=== PATIENT | male | born 1985 | race Caucasian/White ===

== ENCOUNTER 2019-08-17 04:51 | Inpatient (IN) | payer BC ==
[2019-08-17] MEDS ORDERED: Ketorolac 30 MG/ML SDV IVPUSH ONE (05:03)
[2019-08-17] MEDS: Lactated Ringers 1,000 ML IV SCH ×4 (05:17→18:04)
[2019-08-17 05:26] LABS: CHLORIDE,CL 105 mEq/L (98-106); SODIUM,NA 143 mEq/L (136-145)
[2019-08-17] MEDS ORDERED: fentaNYL 100 MCG/2 ML SDV IVPUSH ONE (05:26)
--- NOTE | 2019-08-17 05:32 | EDM.PDOC ---
ED HPI GENERAL MEDICAL PROBLEM - General Chief Complaint: Abdominal Pain Stated Complaint: abdominal pain Time Seen by Provider: 08/17/19 05:15 Source of Information: Reports: Patient History Limitations: Reports: No Limitations - History of Present Illness INITIAL COMMENTS - FREE TEXT/NARRATIVE: Patient presents to ER with complaints of lower quadrant abdominal pain. Has had low grade pain for about a week. Started to get worse yesterday but severe now at a 10/10. Has been mostly located in suprapubic area. No fevers. No nausea or vomiting. Has had normal BMs through the week. No blood in stool or urine. No recent lifting or trauma. Previous orchiectomy for an "abnormality" , was not cancerous. Also has had vasectomy. Onset: Gradual Duration: Day(s): Location: Reports: Abdomen Quality: Reports: Sharp Severity: Severe Improves with: Reports: None Associated Symptoms: Denies: Confusion, Chest Pain, Cough, Fever/Chills, Loss of Appetite, Nausea/Vomiting, Shortness of Breath Treatments VEH[employer]DER: Reports: NSAIDS Abdominal Pain Score (Numeric/FACES): 10 - Related Data Allergies Allergy/AdvReac Type Severity Reaction Status Date / Time erythromycin base Allergy Hives Verified 08/17/19 05:02 topiramate [From Topamax] Allergy Hives Verified 08/17/19 05:02 Home Meds: Home Meds Albuterol [Ventolin HFA] 1 inh ASDIRECTED PRN 08/17/19 [History] Fluticasone Propionate [Flovent HFA 220 MCG] 1 inh DAILY 08/17/19 [History] Montelukast Sodium 1 tab PO DAILY 08/17/19 [History] SUMAtriptan [Imitrex] 1 tab PO ASDIRECTED PRN 08/17/19 [History] Past Medical History Neurological History: Reports: Headaches, Chronic (cluster headaches) - Past Surgical History Male Surgical History: Reports: Vasectomy, Other (See Below) (orchiectomy) Social & Family History - Tobacco Use Smoking Status *Q: Never Smoker ED ROS GENERAL - Review of Systems Review Of Systems: See Below Constitutional: Denies: Fever, Chills, Malaise, Weakness, Decreased Appetite HEENT: Reports: No Symptoms Respiratory: Denies: Shortness of Breath, Cough Cardiovascular: Denies: Chest Pain, Edema, Lightheadedness Endocrine: Denies: Fatigue GI/Abdominal: Reports: Abdominal Pain. Denies: Nausea, Vomiting : Denies: Dysuria, Hematuria Musculoskeletal: Reports: No Symptoms ED EXAM, GI/ABD - Physical Exam Exam: See Below Exam Limited By: No Limitations General Appearance: Alert, WD/WN, Moderate Distress Ears: Normal External Exam, Normal TMs Nose: Normal Inspection, Normal Mucosa, No Blood Throat/Mouth: Normal Inspection, Normal Oropharynx Head: Normocephalic Neck: Normal Inspection, Supple, Non-Tender Respiratory/Chest: No Respiratory Distress, Lungs Clear, Normal Breath Sounds Cardiovascular: Regular Rate, Rhythm GI/Abdominal Exam: Normal Bowel Sounds, Guarding, Rigid, Tender (bilateral lower quadrants) Extremities: Normal Inspection, No Pedal Edema Neurological: Alert, Oriented Skin Exam: Diaphoretic Course - Vital Signs Last Recorded V/S: Last Vital Signs Temp 100.2 F 08/17/19 07:00 Pulse 97 08/17/19 06:00 Resp 16 08/17/19 06:00 BP 128/84 08/17/19 06:00 Pulse Ox 99 08/17/19 06:00 - Orders/Labs/Meds Orders: Active Orders 24 hr Category Date Time Status Patient Status Manage Transfer [TRANSFER] Routine ADT 08/17/19 08:35 Ordered Notify Provider Consults [RC] ASDIRECTED Care 08/17/19 06:24 Active Consult to Physician [CONS] Routine Cons 08/17/19 06:23 Active Abdomen Pelvis w Cont [CT] Stat Exams 08/17/19 05:40 Taken Lactated Ringers [Ringers, Lactated] 1,000 ml Med 08/17/19 05:15 Active IV ASDIRECTED Piperacillin/Tazobactam [Zosyn] 3.375 gm Med 08/17/19 06:30 Active Sodium Chloride 0.9% [Normal Saline] 50 ml IV Q6H fentaNYL [Sublimaze] Med 08/17/19 06:20 Active 25 mcg IVPUSH Q1H PRN Resuscitation Status Routine Resus Stat 08/17/19 08:38 Ordered Medication Orders Fentanyl (Sublimaze) 25 mcg IVPUSH Q1H PRN PRN Reason: Pain Lactated Ringer's (Ringers, Lactated) 1,000 mls @ 250 mls/hr IV ASDIRECTED DANNA Last Admin: 08/17/19 05:17 Dose: 250 mls/hr Piperacillin Sod/Tazobactam (Sod 3.375 gm/ Sodium Chloride) 50 mls @ 100 mls/ hr IV Q6H DAN[facility] Last Admin: 08/17/19 06:36 Dose: 100 mls/hr Labs: Laboratory Tests 08/17/19 08/17/19 08/17/19 Range/Units 05:05 05:05 05:09 WBC 18.4 H (5.0-10.0) 10^3/uL RBC 5.41 (4.50-6.00) 10^6/uL Hgb 15.2 (14.0-18.0) g/dL Hct 44.4 (40.0-54.0) % MCV 82.1 (82.0-94.0) fL MCH 28.1 (27.0-32.0) pg MCHC 34.2 (33.0-38.0) g/dL RDW Coeff of Angela 12.8 (11.0-15.0) % Plt Count 259 (150-400) 10^3/uL Neut % (Auto) 75.7 (35-85) % Lymph % (Auto) 11.8 (10-55) % [place] % (Auto) 9.8 (0-16) % Eos % (Auto) 2.6 (0-5) % Baso % (Auto) 0.1 (0-3) % Neut # (Auto) 13.91 H (1.80-7.00) 10^3/uL Lymph # (Auto) 2.16 (1.00-4.80) 10^3/uL [place] # (Auto) 1.80 H (0.00-0.80) 10^3/uL Eos # (Auto) 0.48 H (0.00-0.45) 10^3/uL Baso # (Auto) 0.01 10^3/uL Sodium 143 (136-145) mEq/L Potassium 4.1 (3.5-5.0) mEq/L Chloride 105 (98-106) mEq/L Carbon Dioxide 25 (21-32) mmol/L BUN 11 (7-18) mg/dL Creatinine 1.0 (0.7-1.3) mg/dL Est Cr Clr Drug Dosing TNP Estimated GFR (MDRD) > 60 (>=60) mL/min Glucose 144 H D (75-99) mg/dL Calcium 8.9 (8.4-10.1) mg/dL Total Bilirubin 0.7 (0.0-1.0) mg/dL AST 17 (15-37) U/L ALT 24 (12-78) U/L Alkaline Phosphatase 67 (46-116) U/L C-Reactive Protein 7.0 H (0.2-0.8) mg/dL Total Protein 7.1 (6.4-8.2) g/dL Albumin 3.8 (3.4-5.0) g/dL Urine Color Yellow (YELLOW) Urine Appearance Clear (CLEAR) Urine pH 7.0 (4.5-8.0) Ur Specific [place]da 1.020 (1.003-1.020) Urine Protein Negative (NEGATIVE) mg/dL Urine Glucose (UA) Negative (NEGATIVE) mg/dL Urine Ketones Negative (NEGATIVE) mg/dL Urine Occult Blood Negative (NEGATIVE) Urine Nitrite Negative (NEGATIVE) Urine Bilirubin Negative (NEGATIVE) Urine Urobilinogen 0.2 (0.2-1.0) EU/dL Ur Leukocyte Esterase Negative (NEGATIVE) Urine RBC Not seen (0-5) /HPF Urine WBC Not seen (0-5) /HPF Urine Mucus Moderate H (NOT SEEN) /HPF Meds: Medications Generic Name Dose Route Start Last Admin Trade Name Freq PRN Reason Stop Dose Admin Fentanyl 25 mcg 08/17/19 06:20 Sublimaze IVPUSH Q1H PRN Pain Lactated Ringer's 1,000 mls @ 250 mls/hr 08/17/19 05:15 08/17/19 05:17 Ringers, Lactated IV 250 mls/hr ASDIRECTED DANNA Administration Piperacillin Sod/Tazobactam 50 mls @ 100 mls/hr 08/17/19 06:30 08/17/19 06:36 Sod 3.375 gm/ Sodium Chloride IV 100 mls/hr Q6H DANNA Administration Discontinued Medications Generic Name Dose Route Start Last Admin Trade Name Freq PRN Reason Stop Dose Admin Fentanyl 50 mcg 08/17/19 05:26 08/17/19 05:31 Sublimaze IVPUSH 08/17/19 05:27 50 mcg ONETIME ONE Administration Iopamidol 100 ml 08/17/19 05:34 08/17/19 05:51 Isovue-370 (76%) IVPUSH 08/17/19 05:35 100 ml ONETIME ONE Administration Ketorolac Tromethamine 30 mg 08/17/19 05:03 08/17/19 05:11 Toradol IVPUSH 08/17/19 05:04 30 mg ONETIME ONE Administration - Re-Assessments/Exams Free Text/Narrative Re-Assessment/Exam: 08/17/19 0540 Labs note high WBC, CRP of 7. UA is clear. Will obtain CT scan with IV contrast. 08/17/19 06:19 Report received, has perforated appendix. Discussed with patient and , called Dr. Abarca, general surgeon in house today. Will plan to proceed with surgery here today. 08/17/19 08:15 Will admit to observation. Departure - Departure Time of Disposition: 08:16 Disposition: Refer to Observation Clinical Impression: Perforated appendix - Discharge Information *PRESCRIPTION DRUG MONITORING PROGRAM REVIEWED*: No *COPY OF PRESCRIPTION DRUG MONITORING REPORT IN PATIENT JAMAL: No Referrals: PCP,None [Primary Care Provider] - Forms: ED Department Discharge - Problem List & Annotations (1) Perforated appendix SNOMED Code(s): 96429354 Code(s): K35.32 - ACUTE APPENDICITIS WITH PERF AND LOC PERITONITIS, W/O ABSCS Status: Acute Priority: High Current Visit: Yes - Problem List Review Problem List Initiated/Reviewed/Updated: Yes - My Orders Last 24 Hours: My Active Orders 08/17/19 05:15 Lactated Ringers [Ringers, Lactated] 1,000 ml IV ASDIRECTED 08/17/19 05:40 Abdomen Pelvis w Cont [CT] Stat 08/17/19 06:20 fentaNYL [Sublimaze] 25 mcg IVPUSH Q1H PRN 08/17/19 06:23 Consult to Physician [CONS] Routine 08/17/19 06:24 Notify Provider Consults [RC] ASDIRECTED 08/17/19 06:30 Piperacillin/Tazobactam [Zosyn] 3.375 gm Sodium Chloride 0.9% [Normal Saline] 50 ml IV Q6H 08/17/19 08:35 Patient Status Manage Transfer [TRANSFER] Routine 08/17/19 08:38 Resuscitation Status Routine - Assessment/Plan Admission H&P: Please use this note as an admission H&P Last 24 Hours: My Active Orders 08/17/19 05:15 Lactated Ringers [Ringers, Lactated] 1,000 ml IV ASDIRECTED 08/17/19 05:40 Abdomen Pelvis w Cont [CT] Stat 08/17/19 06:20 fentaNYL [Sublimaze] 25 mcg IVPUSH Q1H PRN 08/17/19 06:23 Consult to Physician [CONS] Routine 08/17/19 06:24 Notify Provider Consults [RC] ASDIRECTED 08/17/19 06:30 Piperacillin/Tazobactam [Zosyn] 3.375 gm Sodium Chloride 0.9% [Normal Saline] 50 ml IV Q6H 08/17/19 08:35 Patient Status Manage Transfer [TRANSFER] Routine 08/17/19 08:38 Resuscitation Status Routine Assessment:: Perforated Appendix Plan: ADmit to observation. Continue IV Zosyn. Plan for surgical intervention with Dr. Abarca this am.
[2019-08-17] MEDS ORDERED: Iopamidol 755 Mg/ML 100 ML Bottle IVPUSH ONE (05:34)
[2019-08-17] MEDS ORDERED: Piperacillin/Tazobactam 3.375 GM in Sodium Chloride 0.9% 50 ML IV SCH ×2 (06:30→12:45)
[2019-08-17] MEDS ORDERED: Propofol 200 MG/20 ML SDV IV ONE (08:39)
[2019-08-17] MEDS ORDERED: fentaNYL 100 MCG/2 ML SDV ONE (08:39)
[2019-08-17] MEDS: fentaNYL 100 MCG/2 ML SDV IVPUSH PRN ×4 (08:47→20:09)
[2019-08-17] MEDS ORDERED: Sodium Chloride 0.9% 10 ML Syringe FLUSH PRN (12:43)
--- NOTE | 2019-08-17 13:23 | OR ---
DATE OF OPERATION: 08/17/2019 PREOPERATIVE DIAGNOSIS: ACUTE APPENDICITIS. POSTOPERATIVE DIAGNOSIS: ACUTE APPENDICITIS, RUPTURED. SURGEON: Armando Abarca MD PROCEDURE: LAPAROSCOPIC APPENDECTOMY. ANESTHESIA: General. ESTIMATED BLOOD LOSS: Minimum. SPECIMEN: Appendix. INDICATIONS: This 34-year-old male presented to the emergency room with a 4- to 5-day history of right lower quadrant abdominal pain. CT scan consistent with appendicitis, and he has an elevated white blood cell count of 18,000. FINDINGS: A perforated appendix with localized peritonitis. DESCRIPTION OF PROCEDURE: After adequate preparation, a Veress needle was placed and the abdomen insufflated. A 5 mm trocar was then inserted at this site. Examination of the abdomen did show some turbid fluid and fibrinous exudate around the appendix. Two other midline trocars were placed under direct vision. The appendix was matted in place by the surrounding epiploic appendages. These were dissected free down to the base of the appendix, and he had an obvious perforation, about a half a centimeter into the appendix from the cecal junction. The epiploic appendages needed to be cauterized away to be able to get a free space to close the base. A blue 45 mm stapler was used to transect the base of the appendix and then the rest of the mesoappendix was transected using a white load staple and cautery. The appendix was then put into a sterile retrieval bag and brought out through the suprapubic trocar site. The right lower quadrant was irrigated with any remaining blood. There was really not any gross spillage of stool contents, although some through the perforation. The abdomen was desufflated, trocars removed, and the skin closed with 4-0 Vicryl. BPImmanuel/BERTA /[id number]
--- NOTE | 2019-08-17 13:46 | HP ---
HISTORY OF PRESENT ILLNESS: This 34-year-old male presents to the emergency room with a 4- to 5-day history of abdominal pain, now maximally located in the right lower quadrant. He has not reported any fever, however, is 100.1 in the vital signs this morning. CT scan is consistent with acute appendicitis, which also fits his history and physical. PAST MEDICAL HISTORY: ALLERGIES: THE PATIENT HAS ALLERGIES TO ERYTHROMYCIN AND TOPAMAX. MEDICATIONS: Current medications are albuterol inhalers as needed and Flovent as needed. PRIOR SURGICAL HISTORY: Includes wisdom tooth extraction and orchiectomy. FAMILY HISTORY/SOCIAL HISTORY: The patient lives here locally in [place]. 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 He is . REVIEW OF SYSTEMS: Positive for occasional asthma. Otherwise, all other systems are negative. PHYSICAL EXAMINATION: HEENT: Normal. CHEST: The lungs are clear bilaterally. The heart is normal sinus rhythm. ABDOMEN: Maximally tender over the left lower quadrant. He does not have any evidence of hernias. No rebound and moderate guarding. EXTREMITIES: Have good range of motion. NEUROLOGIC: Intact. ASSESSMENT: ACUTE APPENDICITIS. PLAN: This patient will be admitted through extended same-day surgery preop with IV fluids and antibiotic. We will plan on laparoscopic appendectomy. Risks, benefits, and expected outcomes of this plan were discussed with the patient. TUCKER /[id number]
[2019-08-17] MEDS: Piperacillin/Tazobactam 3.375 GM in Sodium Chloride 0.9% 50 ML IV SCH ×2 (14:08→19:03)
[2019-08-17] MEDS: Acetaminophen/oxyCODONE 325-5 MG Tab PO PRN (20:10)
[2019-08-18] MEDS: Acetaminophen/oxyCODONE 325-5 MG Tab PO PRN ×2 (00:17→06:48)
[2019-08-18] MEDS: fentaNYL 100 MCG/2 ML SDV IVPUSH PRN ×4 (00:18→15:50)
[2019-08-18] MEDS: Piperacillin/Tazobactam 3.375 GM in Sodium Chloride 0.9% 50 ML IV SCH ×4 (00:19→20:10)
[2019-08-18] MEDS: Lactated Ringers 1,000 ML IV SCH ×2 (05:41→17:18)
--- NOTE | 2019-08-18 08:02 | PCM.SN ---
- Free Text/Narrative Note: Stable POD#1. Tolerated PO liquids OK. Wounds clean. States he feels a little better. Positive flatus. Will keep for next 2-3 days on Zosyn. Discharge instructions when able to go home. Transfer primary care to [facility]. After discharge, FU with PCP as needed.
[2019-08-18] MEDS: Ondansetron 4 MG/2 ML SDV IVPUSH PRN ×2 (08:15→12:32)
[2019-08-18 08:21] LABS: CHLORIDE,CL 106 mEq/L (98-106); SODIUM,NA 143 mEq/L (136-145)
--- NOTE | 2019-08-18 13:44 | PCM.PN ---
- General Info Date of Service: 08/18/19 Functional Status: Reports: Pain Controlled, Tolerating Diet (PO fluids well) - Review of Systems General: Reports: No Symptoms. Denies: Fever HEENT: Reports: No Symptoms Pulmonary: Reports: No Symptoms Cardiovascular: Reports: No Symptoms Gastrointestinal: Reports: Abdominal Pain (bloated) Genitourinary: Reports: No Symptoms Musculoskeletal: Reports: No Symptoms Skin: Reports: No Symptoms Neurological: Reports: No Symptoms Psychiatric: Reports: No Symptoms - Patient Data Vitals - Most Recent: Last Vital Signs Temp 97.7 F 08/18/19 12:00 Pulse 90 08/18/19 12:00 Resp 18 08/18/19 12:00 BP 142/83 H 08/18/19 12:00 Pulse Ox 98 08/18/19 12:00 Weight - Most Recent: 200 lb I&O - Last 24 Hours: Intake & Output 08/17/19 08/18/19 08/18/19 22:59 06:59 14:59 Intake Total 838 1000 Balance 838 1000 Lab Results Last 24 Hours: Laboratory Results - last 24 hr 08/18/19 08/18/19 Range/Units 05:11 05:11 WBC 26.0 H* (5.0-10.0) 10^3/uL RBC 4.89 (4.50-6.00) 10^6/uL Hgb 14.0 (14.0-18.0) g/dL Hct 40.7 (40.0-54.0) % MCV 83.2 (82.0-94.0) fL MCH 28.6 (27.0-32.0) pg MCHC 34.4 (33.0-38.0) g/dL RDW Coeff of Angela 13.3 (11.0-15.0) % Plt Count 225 (150-400) 10^3/uL Add Manual Diff Yes Neutrophils % (Manual) 86 H (35-85) % Band Neutrophils % 1 (0-5) % Lymphocytes % (Manual) 3 L (21-55) % Monocytes % (Manual) 11 (2-12) % Sodium 143 (136-145) mEq/L Potassium 4.1 (3.5-5.0) mEq/L Chloride 106 (98-106) mEq/L Carbon Dioxide 27 (21-32) mmol/L BUN 12 (7-18) mg/dL Creatinine 1.0 (0.7-1.3) mg/dL Est Cr Clr Drug Dosing 117.63 mL/min Estimated GFR (MDRD) > 60 (>=60) mL/min Glucose 123 H (75-99) mg/dL Calcium 9.0 (8.4-10.1) mg/dL C-Reactive Protein 27.5 H (0.2-0.8) mg/dL Med Orders - Current: Current Medications Fentanyl (Sublimaze) 25 mcg IVPUSH Q1H PRN PRN Reason: Pain Last Admin: 08/18/19 12:32 Dose: 25 mcg Piperacillin Sod/Tazobactam (Sod 3.375 gm/ Sodium Chloride) 50 mls @ 100 mls/ hr IV Q6H [facility] Last Admin: 08/18/19 12:32 Dose: 100 mls/hr Lactated Ringer's (Ringers, Lactated) 1,000 mls @ 100 mls/hr IV ASDIRECTED [facility] Last Admin: 08/18/19 05:41 Dose: 100 mls/hr Morphine Sulfate (Morphine) 2 mg IV Q1H PRN PRN Reason: Pain (severe 7-10) Ondansetron HCl (Zofran) 4 mg IVPUSH Q6H PRN PRN Reason: Nausea/Vomiting Last Admin: 08/18/19 12:32 Dose: 4 mg Oxycodone/Acetaminophen (Percocet 325-5 Mg) 1 tab PO Q4H PRN PRN Reason: Pain (moderate 4-6) Last Admin: 08/18/19 06:48 Dose: 1 tab Sodium Chloride (Saline Flush) 10 ml FLUSH ASDIRECTED PRN PRN Reason: Keep Vein Open Discontinued Medications Fentanyl (Sublimaze) 50 mcg IVPUSH ONETIME ONE Stop: 08/17/19 05:27 Last Admin: 08/17/19 05:31 Dose: 50 mcg Fentanyl (Sublimaze) 300 mcg .XX .STK-MED ONE Stop: 08/17/19 08:40 Lactated Ringer's (Ringers, Lactated) 1,000 mls @ 250 mls/hr IV ASDIRECTED DANNA Last Infusion: 08/17/19 17:29 Dose: 100 mls/hr Piperacillin Sod/Tazobactam (Sod 3.375 gm/ Sodium Chloride) 50 mls @ 100 mls/ hr IV Q6H [facility] Last Admin: 08/17/19 06:36 Dose: 100 mls/hr Piperacillin Sod/Tazobactam (Sod 3.375 gm/ Sodium Chloride) 50 mls @ 100 mls/ hr IV Q6H [facility] Last Admin: 08/17/19 13:28 Dose: Not Given Iopamidol (Isovue-370 (76%)) 100 ml IVPUSH ONETIME ONE Stop: 08/17/19 05:35 Last Admin: 08/17/19 05:51 Dose: 100 ml Ketorolac Tromethamine (Toradol) 30 mg IVPUSH ONETIME ONE Stop: 08/17/19 05:04 Last Admin: 08/17/19 05:11 Dose: 30 mg Propofol (Diprivan 20 Ml) 200 mg IV .STK-MED ONE Stop: 08/17/19 08:40 - Exam General: Alert, Oriented, Cooperative, No Acute Distress Lungs: Clear to Auscultation, Normal Respiratory Effort Cardiovascular: Regular Rate, Regular Rhythm GI/Abdominal Exam: Normal Bowel Sounds, Distended, Tender (mildly diffuse), Other (dressings intact. No surrounding drainage, redness, heat. No obvious infection externally suspected at sites. ) Back Exam: Normal Inspection Extremities: Normal Inspection, Normal Range of Motion, Non-Tender, No Pedal Edema, Normal Capillary Refill Skin: Warm, Dry Wound/Incisions: Healing Well, Dressing Dry and Intact, No Drainage. No: Erythema Psy/Mental Status: Alert, Normal Affect, Normal Mood - Problem List Review Problem List Initiated/Reviewed/Updated: Yes - My Orders Last 24 Hours: My Active Orders 08/19/19 05:00 BASIC METABOLIC PANEL,BMP [CHEM] DAILY CBC WITH AUTO DIFF [HEME] DAILY CRP [C-REACTIVE PROTEIN] [CHEM] DAILY 08/20/19 05:00 BASIC METABOLIC PANEL,BMP [CHEM] DAILY CBC WITH AUTO DIFF [HEME] DAILY CRP [C-REACTIVE PROTEIN] [CHEM] DAILY - Plan Plan:: 08/18/19 0800 This patient had appendix removal after perforation yesterday morning. Dr. Abarca did surgery here in [place]. Dr. Abarca saw this patient this morning and reported patient pain improved. Patient reports some bloating fullness. Patient does report nausea, but no vomiting. Denies fever. Reports he feels better today. He reports able to shower. PO fluids tolerated, but not able to eat foods yet due to nausea. No labs at this time reported. 08/18/19 1700 Patient reports some bloating fullness. Patient does report nausea, vomiting, abd pain at the umbilical. He does report the pain has increased since earlier today when seen by surgeon and me. Patient reports feeling better than yesterday though. Patient did get up and shower today. Patient reports that has been vomiting his fluids. Patient reports he is passing flatus. Dr. Abarca plans to keep until Tuesday, let PCP evaluate at that time for possible discharge. Will continue IV Zosyn. However, reviewed labs which show wbc yesterday 18.4, CRP 7.0. Today labs are wbc 26.0, CRP 27.5. Labs drawn resulted appears to be 0815am. I will repeat labs in afternoon due to wbc elevation, fever, vomiting. I spoke to the patient about his lab elevation, fever, and vomiting. Discussed about talking about patient case with a general surgeon, patient request consult at [facility] in [place]. I also then called and spoke to general surgeon at 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 Dr. Johnson general surgeon at [facility] suggest repeating the labs well. If wbc continues elevation, do a CT. If wbc has decreased, then xray. If illeus then may need NG, if abscess then may need a drain. Awaiting lab results. 08/18/19 1800 Labs wbc is still 26. His CRP has increased. Explained this to patient and . I recommend CT scan with IV contrast. The patient at bedside does not want patient to have ct scan. Discussed with the patient about I feel he needs a CT of abd/pelvis. I explained risk vs benefits with the patient and what we would be looking for. The reports that they would feel more comfortable if I tried to get a hold of the surgeon Dr. Abarca. I did then call his cell and get a hold of him. He reports that at this time continue IV abx and the admit. I then explained this to the patient and . At this time and patient do not want imaging done. I explained risks with not having the scan done. They still do not want at this time. 08/18/191914 I again returned back to the patient room to discuss him getting a ct scan of his abd/pelvis. The patient has again vomited. He continues to have fever, elevated CRP, elevated wbc. I feel strongly that this patient needs a ct scan of his abd/pelvis. I explained in detail risk vs benefits including sepsis, , ischemic bowel, bowel obstructions. Again explained clinical findings and labs with patient. I spent extended time at bedside explaining. The patient then agreed to have the ct scan done. CT scan being performed. 08/18/[id number] Radiologist called with CT results: Patient has an illeus. I then called and spoke with Dr. Abarca again about the patient. He has now reviewed the patient ct as well. He request an NG be placed in the patient to intermittent low suction for a couple of days to possible come out Tuesday. He reports to [facility] only. Continue IV Zosyn. Continue IV Morphine as needed. [id number]/18/[id number] RN had difficulty with NG insertion left nare. I then inserted NG into left nare without complications. 700ml Gastric green/dark brown secretions removed, then placed to low intermittent suction. RN secured tube. Patient tolerated procedure. Will continue admit and monitor here in [place]. I will see this patient again tomorrow and repeat labs tomorrow.
[2019-08-18 18:21] LABS: CHLORIDE,CL 105 mEq/L (98-106); SODIUM,NA 143 mEq/L (136-145)
[2019-08-18] MEDS ORDERED: Iopamidol 755 Mg/ML 100 ML Bottle IVPUSH ONE (19:55)
[2019-08-18] MEDS ORDERED: Morphine 2 MG/ML Syringe IVPUSH PRN (21:24)
[2019-08-18] MEDS ORDERED: Sodium Chloride 0.9% 1,000 ML IV SCH (21:30)
[2019-08-19] MEDS: Piperacillin/Tazobactam 3.375 GM in Sodium Chloride 0.9% 50 ML IV SCH ×4 (00:57→18:32)
[2019-08-19] MEDS: fentaNYL 100 MCG/2 ML SDV IVPUSH PRN ×4 (02:11→19:39)
[2019-08-19] MEDS: Lactated Ringers 1,000 ML IV SCH (04:54)
[2019-08-19 08:19] LABS: CHLORIDE,CL 105 mEq/L (98-106); SODIUM,NA 142 mEq/L (136-145)
--- NOTE | 2019-08-19 10:44 | PCM.PN ---
- General Info Date of Service: 08/19/19 Functional Status: Reports: Pain Controlled (improved today), Tolerating Diet ( ice chips only), Ambulating, Urinating Pain Score: 2 - Review of Systems General: Reports: Fever (99.7) HEENT: Reports: No Symptoms Pulmonary: Reports: No Symptoms Cardiovascular: Reports: No Symptoms Gastrointestinal: Reports: Abdominal Pain (but improved since NG place placement ), Flatus, Nausea, Vomiting (x1 about 6am this morning) Genitourinary: Reports: No Symptoms Musculoskeletal: Reports: No Symptoms Skin: Reports: No Symptoms Neurological: Reports: No Symptoms Psychiatric: Reports: No Symptoms - Patient Data Vitals - Most Recent: Last Vital Signs Temp 99.7 F 08/19/19 04:00 Pulse 99 08/19/19 08:00 Resp 18 08/19/19 08:00 BP 157/83 H 08/19/19 08:00 Pulse Ox 98 08/19/19 08:00 Weight - Most Recent: 200 lb I&O - Last 24 Hours: Intake & Output 08/18/19 08/19/19 08/19/19 22:59 06:59 14:59 Intake Total 1000 870 Output Total 850 Balance 1000 20 Lab Results Last 24 Hours: Laboratory Results - last 24 hr 08/18/19 08/18/19 08/18/19 Range/Units 17:14 17:25 17:25 WBC 26.0 H* (5.0-10.0) 10^3/uL RBC 5.14 (4.50-6.00) 10^6/uL Hgb 14.6 (14.0-18.0) g/dL Hct 43.2 (40.0-54.0) % MCV 84.0 (82.0-94.0) fL MCH 28.4 (27.0-32.0) pg MCHC 33.8 (33.0-38.0) g/dL RDW Coeff of Angela 13.6 (11.0-15.0) % Plt Count 247 (150-400) 10^3/uL Neut % (Auto) 91.9 H (35-85) % Lymph % (Auto) 2.5 L (10-55) % [place] % (Auto) 5.5 (0-16) % Eos % (Auto) 0 (0-5) % Baso % (Auto) 0.1 (0-3) % Neut # (Auto) 23.84 H (1.80-7.00) 10^3/uL Lymph # (Auto) 0.66 L (1.00-4.80) 10^3/uL [place] # (Auto) 1.42 H (0.00-0.80) 10^3/uL Eos # (Auto) 0.01 (0.00-0.45) 10^3/uL Baso # (Auto) 0.02 10^3/uL Sodium 143 (136-145) mEq/L Potassium 3.9 (3.5-5.0) mEq/L Chloride 105 (98-106) mEq/L Carbon Dioxide 27 (21-32) mmol/L BUN 15 (7-18) mg/dL Creatinine 1.0 (0.7-1.3) mg/dL Est Cr Clr Drug Dosing 117.63 mL/min Estimated GFR (MDRD) > 60 (>=60) mL/min Glucose 121 H (75-99) mg/dL Lactic Acid 1.4 (0.4-2.0) mmol/L Calcium 8.9 (8.4-10.1) mg/dL Total Bilirubin 0.6 (0.0-1.0) mg/dL AST 10 L (15-37) U/L ALT 15 (12-78) U/L Alkaline Phosphatase 54 (46-116) U/L C-Reactive Protein 32.7 H (0.2-0.8) mg/dL Total Protein 6.8 (6.4-8.2) g/dL Albumin 3.0 L (3.4-5.0) g/dL 08/19/19 08/19/19 Range/Units 05:00 05:00 WBC 22.0 H* (5.0-10.0) 10^3/uL RBC 4.83 (4.50-6.00) 10^6/uL Hgb 13.6 L (14.0-18.0) g/dL Hct 40.3 (40.0-54.0) % MCV 83.4 (82.0-94.0) fL MCH 28.2 (27.0-32.0) pg MCHC 33.7 (33.0-38.0) g/dL RDW Coeff of Angela 13.4 (11.0-15.0) % Plt Count 260 (150-400) 10^3/uL Neut % (Auto) 90.0 H (35-85) % Lymph % (Auto) 3.6 L (10-55) % [place] % (Auto) 6.3 (0-16) % Eos % (Auto) 0.1 (0-5) % Baso % (Auto) 0 (0-3) % Neut # (Auto) 19.76 H (1.80-7.00) 10^3/uL Lymph # (Auto) 0.80 L (1.00-4.80) 10^3/uL [place] # (Auto) 1.38 H (0.00-0.80) 10^3/uL Eos # (Auto) 0.02 (0.00-0.45) 10^3/uL Baso # (Auto) 0.01 10^3/uL Sodium 142 (136-145) mEq/L Potassium 3.8 (3.5-5.0) mEq/L Chloride 105 (98-106) mEq/L Carbon Dioxide 27 (21-32) mmol/L BUN 18 (7-18) mg/dL Creatinine 1.0 (0.7-1.3) mg/dL Est Cr Clr Drug Dosing 117.63 mL/min Estimated GFR (MDRD) > 60 (>=60) mL/min Glucose 136 H (75-99) mg/dL Lactic Acid (0.4-2.0) mmol/L Calcium 8.7 (8.4-10.1) mg/dL Total Bilirubin (0.0-1.0) mg/dL AST (15-37) U/L ALT (12-78) U/L Alkaline Phosphatase (46-116) U/L C-Reactive Protein 41.7 H (0.2-0.8) mg/dL Total Protein (6.4-8.2) g/dL Albumin (3.4-5.0) g/dL Med Orders - Current: Current Medications Fentanyl (Sublimaze) 25 mcg IVPUSH Q1H PRN PRN Reason: Pain Last Admin: 08/19/19 04:54 Dose: 25 mcg Piperacillin Sod/Tazobactam (Sod 3.375 gm/ Sodium Chloride) 50 mls @ 100 mls/ hr IV Q6H [facility] Last Admin: 08/19/19 06:15 Dose: 100 mls/hr Lactated Ringer's (Ringers, Lactated) 1,000 mls @ 100 mls/hr IV ASDIRECTED [facility] Last Admin: 08/19/19 04:54 Dose: 75 mls/hr Morphine Sulfate (Morphine) 2 mg IV Q1H PRN PRN Reason: Pain (severe 7-10) Last Admin: 08/18/19 22:40 Dose: 2 mg Ondansetron HCl (Zofran) 4 mg IVPUSH Q6H PRN PRN Reason: Nausea/Vomiting Last Admin: 08/18/19 12:32 Dose: 4 mg Oxycodone/Acetaminophen (Percocet 325-5 Mg) 1 tab PO Q4H PRN PRN Reason: Pain (moderate 4-6) Last Admin: 08/18/19 06:48 Dose: 1 tab Sodium Chloride (Saline Flush) 10 ml FLUSH ASDIRECTED PRN PRN Reason: Keep Vein Open Discontinued Medications Fentanyl (Sublimaze) 50 mcg IVPUSH ONETIME ONE Stop: 08/17/19 05:27 Last Admin: 08/17/19 05:31 Dose: 50 mcg Fentanyl (Sublimaze) 300 mcg .XX .STK-MED ONE Stop: 08/17/19 08:40 Lactated Ringer's (Ringers, Lactated) 1,000 mls @ 250 mls/hr IV ASDIRECTED [facility] Last Infusion: 08/17/19 17:29 Dose: 100 mls/hr Piperacillin Sod/Tazobactam (Sod 3.375 gm/ Sodium Chloride) 50 mls @ 100 mls/ hr IV Q6H [facility] Last Admin: 08/17/19 06:36 Dose: 100 mls/hr Piperacillin Sod/Tazobactam (Sod 3.375 gm/ Sodium Chloride) 50 mls @ 100 mls/ hr IV Q6H [facility] Last Admin: 08/17/19 13:28 Dose: Not Given Sodium Chloride (Normal Saline) 1,000 mls @ 75 mls/hr IV ASDIRECTED [facility] Iopamidol (Isovue-370 (76%)) 100 ml IVPUSH ONETIME ONE Stop: 08/17/19 05:35 Last Admin: 08/17/19 05:51 Dose: 100 ml Iopamidol (Isovue-370 (76%)) 100 ml IVPUSH ONETIME ONE Stop: 08/18/19 19:56 Last Admin: 08/18/19 20:03 Dose: 100 ml Ketorolac Tromethamine (Toradol) 30 mg IVPUSH ONETIME ONE Stop: 08/17/19 05:04 Last Admin: 08/17/19 05:11 Dose: 30 mg Propofol (Diprivan 20 Ml) 200 mg IV .STK-MED ONE Stop: 08/17/19 08:40 - Exam General: Alert, Oriented, Cooperative, No Acute Distress Lungs: Clear to Auscultation, Normal Respiratory Effort Cardiovascular: Regular Rate, Regular Rhythm. No: No Murmurs GI/Abdominal Exam: Soft, Tender (very mild umbilical). No: Guarding, Rigid, Rebound (Male) Exam: Deferred Back Exam: Normal Inspection Extremities: Normal Inspection, No Pedal Edema, Normal Capillary Refill Skin: Warm, Dry Wound/Incisions: Healing Well, Dressing Dry and Intact, No Drainage. No: Drainage, Erythema Psy/Mental Status: Alert, Normal Affect, Normal Mood - Problem List Review Problem List Initiated/Reviewed/Updated: Yes - My Orders Last 24 Hours: My Active Orders 08/18/19 17:14 Blood Culture x2 Reflex Set [OM.PC] Stat 08/18/19 18:00 CULTURE BLOOD [BC] Stat CULTURE BLOOD [BC] Stat 08/18/19 18:20 Abdomen Pelvis w Cont [CT] Stat 08/18/19 21:23 NG [Gastrointestinal Tube Mgmt] [RC] 0800,2000 NG [Nasogastric Orogastric Tube Insertion] [OM.PC] Routine 08/19/19 Breakfast Nothing Per Oral Diet [DIET] 08/20/19 05:00 BASIC METABOLIC PANEL,BMP [CHEM] DAILY CBC WITH AUTO DIFF [HEME] DAILY CRP [C-REACTIVE PROTEIN] [CHEM] DAILY - Plan Plan:: 08/18/19 0800 This patient had appendix removal after perforation yesterday morning. Dr. Abarca did surgery here in [place]. Dr. Abarca saw this patient this morning and reported patient pain improved. Patient reports some bloating fullness. Patient does report nausea, but no vomiting. Denies fever. Reports he feels better today. He reports able to shower. PO fluids tolerated, but not able to eat foods yet due to nausea. No labs at this time reported. 08/18/19 1700 Patient reports some bloating fullness. Patient does report nausea, vomiting, abd pain at the umbilical. He does report the pain has increased since earlier today when seen by surgeon and me. Patient reports feeling better than yesterday though. Patient did get up and shower today. Patient reports that has been vomiting his fluids. Patient reports he is passing flatus. Dr. Abarca plans to keep until Tuesday, let PCP evaluate at that time for possible discharge. Will continue IV Zosyn. However, reviewed labs which show wbc yesterday 18.4, CRP 7.0. Today labs are wbc 26.0, CRP 27.5. Labs drawn resulted appears to be 0815am. I will repeat labs in afternoon due to wbc elevation, fever, vomiting. I spoke to the patient about his lab elevation, fever, and vomiting. Discussed about talking about patient case with a general surgeon, patient request consult at [facility] in [place]. 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 Dr. Johnson general surgeon at [facility] suggest repeating the labs well. If wbc continues elevation, do a CT. If wbc has decreased, then xray. If illeus then may need NG, if abscess then may need a drain. Awaiting lab results. 08/18/19 1800 Labs wbc is still 26. His CRP has increased. Explained this to patient and . I recommend CT scan with IV contrast. The patient at bedside does not want patient to have ct scan. Discussed with the patient about I feel he needs a CT of abd/pelvis. I explained risk vs benefits with the patient and what we would be looking for. The reports that they would feel more comfortable if I tried to get a hold of the surgeon Dr. Abarca. I did then call his cell and get a hold of him. He reports that at this time continue IV abx and the admit. I then explained this to the patient and . At this time and patient do not want imaging done. I explained risks with not having the scan done. They still do not want at this time. 08/18/191914 I again returned back to the patient room to discuss him getting a ct scan of his abd/pelvis. The patient has again vomited. He continues to have fever, elevated CRP, elevated wbc. I feel strongly that this patient needs a ct scan of his abd/pelvis. I explained in detail risk vs benefits including sepsis, , ischemic bowel, bowel obstructions. Again explained clinical findings and labs with patient. I spent extended time at bedside explaining. The patient then agreed to have the ct scan done. CT scan being performed. 08/18/192044 Radiologist called with CT results: Patient has an illeus. I then called and spoke with Dr. Abarca again about the patient. He has now reviewed the patient ct as well. He request an NG be placed in the patient to intermittent low suction for a couple of days to possible come out Tuesday. He reports to ice chips only. Continue IV Zosyn. Continue IV Morphine as needed. 08/18/192144 RN had difficulty with NG insertion left nare. I then inserted NG into left nare without complications. 700ml Gastric green/dark brown secretions removed, then placed to low intermittent suction. RN secured tube. Patient tolerated procedure. Will continue admit and monitor here in [place]. I will see this patient again tomorrow and repeat labs tomorrow. 08/19/19 1030 This patient has NG in place to suction intermittent. RN told me early this morning the patient was ambulating and had x1 vomit. The NG tube was adjusted and patient has not had vomiting since. The patient reports that since NG insertion and especially this morning, he has felt much better. He reports he has felt the best since Tuesday. Patient denies fever subjective. He reports bloating and abd pain has decreased. He denies nausea now. Labs today are wbc 22 , CRP 41.7. His temp is 99.7. Will continue NG, Ice chips. PCP to evaluate tomorrow. Will continue abx.
--- NOTE | 2019-08-19 11:47 | PCM.SN ---
- Free Text/Narrative Note: Dr. Abarca called to check on patient. Will keep NG in today. Patient has not had a BM yet, but passing gas. Surgeon will followup with PCP tomorrow on this patient.
[2019-08-20] MEDS: Piperacillin/Tazobactam 3.375 GM in Sodium Chloride 0.9% 50 ML IV SCH ×4 (00:08→18:41)
[2019-08-20] MEDS: Lactated Ringers 1,000 ML IV SCH ×3 (02:42→23:21)
[2019-08-20] MEDS: fentaNYL 100 MCG/2 ML SDV IVPUSH PRN (03:35)
[2019-08-20 08:03] LABS: CHLORIDE,CL 104 mEq/L (98-106); SODIUM,NA 142 mEq/L (136-145)
--- NOTE | 2019-08-20 20:54 | PCM.PN ---
- General Info Date of Service: 08/20/19 Admission Dx/Problem (Free Text): Perforated Appendix Functional Status: Reports: Ambulating. Denies: Pain Controlled, Tolerating Diet - Review of Systems General: Reports: Fever, Weakness, Fatigue, Malaise HEENT: Reports: No Symptoms Pulmonary: Denies: Shortness of Breath, Cough Cardiovascular: Denies: Chest Pain, Edema, Lightheadedness Gastrointestinal: Reports: Abdominal Pain. Denies: Nausea, Vomiting Genitourinary: Reports: No Symptoms Musculoskeletal: Reports: No Symptoms Skin: Reports: Other (incision) Neurological: Reports: No Symptoms - Patient Data Vitals - Most Recent: Last Vital Signs Temp 100.3 F 08/20/19 16:00 Pulse 108 H 08/20/19 16:00 Resp 16 08/20/19 16:00 BP 157/89 H 08/20/19 16:00 Pulse Ox 98 08/20/19 16:00 Weight - Most Recent: 200 lb I&O - Last 24 Hours: Intake & Output 08/20/19 08/20/19 08/20/19 06:59 14:59 22:59 Intake Total 1000 Output Total 1250 Balance -1250 1000 Lab Results Last 24 Hours: Laboratory Results - last 24 hr 08/20/19 08/20/19 Range/Units 05:00 05:00 WBC 17.7 H (5.0-10.0) 10^3/uL RBC 4.76 (4.50-6.00) 10^6/uL Hgb 13.5 L (14.0-18.0) g/dL Hct 39.9 L (40.0-54.0) % MCV 83.8 (82.0-94.0) fL MCH 28.4 (27.0-32.0) pg MCHC 33.8 (33.0-38.0) g/dL RDW Coeff of Angela 13.3 (11.0-15.0) % Plt Count 277 (150-400) 10^3/uL Neut % (Auto) 85.8 H (35-85) % Lymph % (Auto) 4.6 L (10-55) % [place] % (Auto) 8.6 (0-16) % Eos % (Auto) 0.9 (0-5) % Baso % (Auto) 0.1 (0-3) % Neut # (Auto) 15.19 H (1.80-7.00) 10^3/uL Lymph # (Auto) 0.82 L (1.00-4.80) 10^3/uL [place] # (Auto) 1.52 H (0.00-0.80) 10^3/uL Eos # (Auto) 0.16 (0.00-0.45) 10^3/uL Baso # (Auto) 0.01 10^3/uL Sodium 142 (136-145) mEq/L Potassium 3.6 (3.5-5.0) mEq/L Chloride 104 (98-106) mEq/L Carbon Dioxide 25 (21-32) mmol/L BUN 21 H (7-18) mg/dL Creatinine 0.9 (0.7-1.3) mg/dL Est Cr Clr Drug Dosing 130.70 mL/min Estimated GFR (MDRD) > 60 (>=60) mL/min Glucose 114 H (75-99) mg/dL Calcium 8.6 (8.4-10.1) mg/dL C-Reactive Protein 31.2 H (0.2-0.8) mg/dL Jones Results Last 24 Hours: Microbiology 08/18/19 18:00 Aerobic Blood Culture - Preliminary Blood - Venous NO GROWTH AFTER 1 DAY Anaerobic Blood Culture - Preliminary NO GROWTH AFTER 1 DAY 08/18/19 18:00 Aerobic Blood Culture - Preliminary Blood - Venous - Lab Draw NO GROWTH AFTER 1 DAY Anaerobic Blood Culture - Preliminary NO GROWTH AFTER 1 DAY Med Orders - Current: Current Medications Fentanyl (Sublimaze) 25 mcg IVPUSH Q1H PRN PRN Reason: Pain Last Admin: 08/20/19 03:35 Dose: 25 mcg Piperacillin Sod/Tazobactam (Sod 3.375 gm/ Sodium Chloride) 50 mls @ 100 mls/ hr IV Q6H [facility] Last Admin: 08/20/19 18:41 Dose: 100 mls/hr Lactated Ringer's (Ringers, Lactated) 1,000 mls @ 100 mls/hr IV ASDIRECTED [facility] Last Admin: 08/20/19 13:27 Dose: 100 mls/hr Morphine Sulfate (Morphine) 2 mg IV Q1H PRN PRN Reason: Pain (severe 7-10) Last Admin: 08/20/19 18:55 Dose: 2 mg Ondansetron HCl (Zofran) 4 mg IVPUSH Q6H PRN PRN Reason: Nausea/Vomiting Last Admin: 08/18/19 12:32 Dose: 4 mg Oxycodone/Acetaminophen (Percocet 325-5 Mg) 1 tab PO Q4H PRN PRN Reason: Pain (moderate 4-6) Last Admin: 08/18/19 06:48 Dose: 1 tab Sodium Chloride (Saline Flush) 10 ml FLUSH ASDIRECTED PRN PRN Reason: Keep Vein Open Discontinued Medications Fentanyl (Sublimaze) 50 mcg IVPUSH ONETIME ONE Stop: 08/17/19 05:27 Last Admin: 08/17/19 05:31 Dose: 50 mcg Fentanyl (Sublimaze) 300 mcg .XX .STK-MED ONE Stop: 08/17/19 08:40 Lactated Ringer's (Ringers, Lactated) 1,000 mls @ 250 mls/hr IV ASDIRECTED [facility] Last Infusion: 08/17/19 17:29 Dose: 100 mls/hr Piperacillin Sod/Tazobactam (Sod 3.375 gm/ Sodium Chloride) 50 mls @ 100 mls/ hr IV Q6H [facility] Last Admin: 08/17/19 06:36 Dose: 100 mls/hr Piperacillin Sod/Tazobactam (Sod 3.375 gm/ Sodium Chloride) 50 mls @ 100 mls/ hr IV Q6H [facility] Last Admin: 08/17/19 13:28 Dose: Not Given Sodium Chloride (Normal Saline) 1,000 mls @ 75 mls/hr IV ASDIRECTED [facility] Iopamidol (Isovue-370 (76%)) 100 ml IVPUSH ONETIME ONE Stop: 08/17/19 05:35 Last Admin: 08/17/19 05:51 Dose: 100 ml Iopamidol (Isovue-370 (76%)) 100 ml IVPUSH ONETIME ONE Stop: 08/18/19 19:56 Last Admin: 08/18/19 20:03 Dose: 100 ml Ketorolac Tromethamine (Toradol) 30 mg IVPUSH ONETIME ONE Stop: 08/17/19 05:04 Last Admin: 08/17/19 05:11 Dose: 30 mg Propofol (Diprivan 20 Ml) 200 mg IV .STK-MED ONE Stop: 08/17/19 08:40 - Exam General: Alert, Oriented HEENT: Mucous Membr. Moist/[place] Neck: Supple Lungs: Clear to Auscultation, Normal Respiratory Effort Cardiovascular: Regular Rate, Regular Rhythm GI/Abdominal Exam: Normal Bowel Sounds, Soft, Guarding, Tender Extremities: Normal Inspection, No Pedal Edema Skin: Warm, Dry Wound/Incisions: Healing Well, Dressing Dry and Intact Neurological: No New Focal Deficit - Problem List & Annotations (1) Perforated appendix SNOMED Code(s): 10604251 Code(s): K35.32 - ACUTE APPENDICITIS WITH PERF AND LOC PERITONITIS, W/O ABSCS Status: Acute Priority: High Current Visit: Yes - Problem List Review Problem List Initiated/Reviewed/Updated: Yes - My Orders Last 24 Hours: My Active Orders 08/20/19 Dinner Clear Liquid Diet [DIET] 08/21/19 05:11 BASIC METABOLIC PANEL,BMP [CHEM] AM C-REACTIVE PROTEIN [CHEM] AM CBC WITH AUTO DIFF [HEME] AM - Assessment Assessment:: Perforated Appendix Ileus - Plan Plan:: 08/18/19 0800 This patient had appendix removal after perforation yesterday morning. Dr. Abarca did surgery here in [place]. Dr. Abarca saw this patient this morning and reported patient pain improved. Patient reports some bloating fullness. Patient does report nausea, but no vomiting. Denies fever. Reports he feels better today. He reports able to shower. PO fluids tolerated, but not able to eat foods yet due to nausea. No labs at this time reported. 08/18/19 1700 Patient reports some bloating fullness. Patient does report nausea, vomiting, abd pain at the umbilical. He does report the pain has increased since earlier today when seen by surgeon and me. Patient reports feeling better than yesterday though. Patient did get up and shower today. Patient reports that has been vomiting his fluids. Patient reports he is passing flatus. Dr. Abarca plans to keep until Tuesday, let PCP evaluate at that time for possible discharge. Will continue IV Zosyn. However, reviewed labs which show wbc yesterday 18.4, CRP 7.0. Today labs are wbc 26.0, CRP 27.5. Labs drawn resulted appears to be 0815am. I will repeat labs in afternoon due to wbc elevation, fever, vomiting. I spoke to the patient about his lab elevation, fever, and vomiting. Discussed about talking about patient case with a general surgeon, patient request consult at [facility] in [place]. 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 Dr. Johnson general surgeon at [facility] suggest repeating the labs well. If wbc continues elevation, do a CT. If wbc has decreased, then xray. If illeus then may need NG, if abscess then may need a drain. Awaiting lab results. 08/18/19 1800 Labs wbc is still 26. His CRP has increased. Explained this to patient and . I recommend CT scan with IV contrast. The patient at bedside does not want patient to have ct scan. Discussed with the patient about I feel he needs a CT of abd/pelvis. I explained risk vs benefits with the patient and what we would be looking for. The reports that they would feel more comfortable if I tried to get a hold of the surgeon Dr. Abarca. I did then call his cell and get a hold of him. He reports that at this time continue IV abx and the admit. I then explained this to the patient and . At this time and patient do not want imaging done. I explained risks with not having the scan done. They still do not want at this time. 08/18/191914 I again returned back to the patient room to discuss him getting a ct scan of his abd/pelvis. The patient has again vomited. He continues to have fever, elevated CRP, elevated wbc. I feel strongly that this patient needs a ct scan of his abd/pelvis. I explained in detail risk vs benefits including sepsis, , ischemic bowel, bowel obstructions. Again explained clinical findings and labs with patient. I spent extended time at bedside explaining. The patient then agreed to have the ct scan done. CT scan being performed. 08/18/192044 Radiologist called with CT results: Patient has an illeus. I then called and spoke with Dr. Abarca again about the patient. He has now reviewed the patient ct as well. He request an NG be placed in the patient to intermittent low suction for a couple of days to possible come out Tuesday. He reports to ice [employer] only. Continue IV Zosyn. Continue IV Morphine as needed. 08/18/19 2145 RN had difficulty with NG insertion left nare. I then inserted NG into left nare without complications. 700ml Gastric green/dark brown secretions removed, then placed to low intermittent suction. RN secured tube. Patient tolerated procedure. Will continue admit and monitor here in [place]. I will see this patient again tomorrow and repeat labs tomorrow. 08/19/19 1030 This patient has NG in place to suction intermittent. RN told me early this morning the patient was ambulating and had x1 vomit. The NG tube was adjusted and patient has not had vomiting since. The patient reports that since NG insertion and especially this morning, he has felt much better. He reports he has felt the best since Tuesday. Patient denies fever subjective. He reports bloating and abd pain has decreased. He denies nausea now. Labs today are wbc 22 , CRP 41.7. His temp is 99.7. Will continue NG, Ice chips. PCP to evaluate tomorrow. Will continue abx. 08-20-2019 Patient resting comfortably, states pain around a 3 this am. Is passing flatus now, has had 3 stools through the night. NG has had 300 ml out since change of shift. Low grade fevers. Incisions are clean and dry to abdomen. Abdomen is soft, bowel sounds noted. Lung sounds clear. Labs are improved today, WBC down to 17.7, CRP has improved from 41.7 to 31.2 today. Did speak with Dr. Abarca regarding patient. Will clamp NG this am. If no nausea or vomiting, will introduce clear liquids at noon with hopes to remove NG tomorrow am. Ambulate. Continue IV antibiotics.
[2019-08-21] MEDS: Piperacillin/Tazobactam 3.375 GM in Sodium Chloride 0.9% 50 ML IV SCH ×4 (01:25→18:54)
[2019-08-21 07:30] LABS: CHLORIDE,CL 102 mEq/L (98-106); SODIUM,NA 140 mEq/L (136-145)
--- NOTE | 2019-08-21 09:13 | PCM.PN ---
- General Info Date of Service: 08/21/19 Admission Dx/Problem (Free Text): Perforated Appendix Functional Status: Reports: Pain Controlled, Tolerating Diet, Ambulating, Urinating - Review of Systems General: Reports: Fever, Weakness, Fatigue, Malaise HEENT: Reports: No Symptoms Pulmonary: Denies: Shortness of Breath, Cough Cardiovascular: Denies: Chest Pain, Edema, Lightheadedness Gastrointestinal: Reports: Abdominal Pain, Flatus. Denies: Nausea, Vomiting Genitourinary: Reports: No Symptoms Musculoskeletal: Reports: No Symptoms Skin: Reports: Other (incision) Neurological: Reports: No Symptoms - Patient Data Vitals - Most Recent: Last Vital Signs Temp 97.3 F 08/21/19 03:50 Pulse 104 H 08/21/19 03:50 Resp 18 08/21/19 03:50 BP 156/88 H 08/21/19 03:50 Pulse Ox 99 08/21/19 03:50 Weight - Most Recent: 200 lb I&O - Last 24 Hours: Intake & Output 08/20/19 08/21/19 08/21/19 22:59 06:59 14:59 Intake Total 990 Balance 990 Lab Results Last 24 Hours: Laboratory Results - last 24 hr 08/21/19 08/21/19 Range/Units 07:00 07:00 WBC 16.9 H (5.0-10.0) 10^3/uL RBC 4.72 (4.50-6.00) 10^6/uL Hgb 13.2 L (14.0-18.0) g/dL Hct 39.3 L (40.0-54.0) % MCV 83.3 (82.0-94.0) fL MCH 28.0 (27.0-32.0) pg MCHC 33.6 (33.0-38.0) g/dL RDW Coeff of Angela 13.4 (11.0-15.0) % Plt Count 293 (150-400) 10^3/uL Add Manual Diff Yes Neutrophils % (Manual) 80 (35-85) % Lymphocytes % (Manual) 9 L (21-55) % Monocytes % (Manual) 9 (2-12) % Eosinophils % (Manual) 2 (0-5) % Absolute Neutrophils 13.52 H (1.80-7.00) 10^3/uL Lymphocytes # (Manual) 1.52 (1.00-4.80) 10^3/uL Monocytes # (Manual) 1.52 H (0.00-0.80) 10^3/uL Eosinophils # (Manual) 0.34 (0.00-0.45) 10^3/uL Sodium 140 (136-145) mEq/L Potassium 3.5 (3.5-5.0) mEq/L Chloride 102 (98-106) mEq/L Carbon Dioxide 27 (21-32) mmol/L BUN 14 (7-18) mg/dL Creatinine 0.8 (0.7-1.3) mg/dL Est Cr Clr Drug Dosing 147.04 mL/min Estimated GFR (MDRD) > 60 (>=60) mL/min Glucose 114 H (75-99) mg/dL Calcium 8.6 (8.4-10.1) mg/dL C-Reactive Protein 38.9 H (0.2-0.8) mg/dL Jones Results Last 24 Hours: Microbiology 08/18/19 18:00 Aerobic Blood Culture - Preliminary Blood - Venous NO GROWTH AFTER 2 DAYS Anaerobic Blood Culture - Preliminary NO GROWTH AFTER 2 DAYS 08/18/19 18:00 Aerobic Blood Culture - Preliminary Blood - Venous - Lab Draw NO GROWTH AFTER 2 DAYS Anaerobic Blood Culture - Preliminary NO GROWTH AFTER 2 DAYS Med Orders - Current: Current Medications Fentanyl (Sublimaze) 25 mcg IVPUSH Q1H PRN PRN Reason: Pain Last Admin: 08/20/19 03:35 Dose: 25 mcg Piperacillin Sod/Tazobactam (Sod 3.375 gm/ Sodium Chloride) 50 mls @ 100 mls/ hr IV Q6H [facility] Last Admin: 08/21/19 06:29 Dose: 100 mls/hr Lactated Ringer's (Ringers, Lactated) 1,000 mls @ 100 mls/hr IV ASDIRECTED [facility] Last Admin: 08/20/19 23:21 Dose: 100 mls/hr Morphine Sulfate (Morphine) 2 mg IV Q1H PRN PRN Reason: Pain (severe 7-10) Last Admin: 08/21/19 03:42 Dose: 2 mg Ondansetron HCl (Zofran) 4 mg IVPUSH Q6H PRN PRN Reason: Nausea/Vomiting Last Admin: 08/18/19 12:32 Dose: 4 mg Oxycodone/Acetaminophen (Percocet 325-5 Mg) 1 tab PO Q4H PRN PRN Reason: Pain (moderate 4-6) Last Admin: 08/18/19 06:48 Dose: 1 tab Sodium Chloride (Saline Flush) 10 ml FLUSH ASDIRECTED PRN PRN Reason: Keep Vein Open Discontinued Medications Fentanyl (Sublimaze) 50 mcg IVPUSH ONETIME ONE Stop: 08/17/19 05:27 Last Admin: 08/17/19 05:31 Dose: 50 mcg Fentanyl (Sublimaze) 300 mcg .XX .STK-MED ONE Stop: 08/17/19 08:40 Lactated Ringer's (Ringers, Lactated) 1,000 mls @ 250 mls/hr IV ASDIRECTED [facility] Last Infusion: 08/17/19 17:29 Dose: 100 mls/hr Piperacillin Sod/Tazobactam (Sod 3.375 gm/ Sodium Chloride) 50 mls @ 100 mls/ hr IV Q6H [facility] Last Admin: 08/17/19 06:36 Dose: 100 mls/hr Piperacillin Sod/Tazobactam (Sod 3.375 gm/ Sodium Chloride) 50 mls @ 100 mls/ hr IV Q6H [facility] Last Admin: 08/17/19 13:28 Dose: Not Given Sodium Chloride (Normal Saline) 1,000 mls @ 75 mls/hr IV ASDIRECTED [facility] Iopamidol (Isovue-370 (76%)) 100 ml IVPUSH ONETIME ONE Stop: 08/17/19 05:35 Last Admin: 08/17/19 05:51 Dose: 100 ml Iopamidol (Isovue-370 (76%)) 100 ml IVPUSH ONETIME ONE Stop: 08/18/19 19:56 Last Admin: 08/18/19 20:03 Dose: 100 ml Ketorolac Tromethamine (Toradol) 30 mg IVPUSH ONETIME ONE Stop: 08/17/19 05:04 Last Admin: 08/17/19 05:11 Dose: 30 mg Propofol (Diprivan 20 Ml) 200 mg IV .STK-MED ONE Stop: 08/17/19 08:40 - Exam General: Alert, Oriented HEENT: Mucous Membr. Moist/[place] Neck: Supple Lungs: Clear to Auscultation, Normal Respiratory Effort Cardiovascular: Regular Rate, Regular Rhythm GI/Abdominal Exam: Normal Bowel Sounds, Soft, Distended, Tender (diffusely throughout) Extremities: Normal Inspection, No Pedal Edema Skin: Warm, Dry Wound/Incisions: Healing Well, Dressing Dry and Intact, No Drainage Neurological: No New Focal Deficit - Problem List & Annotations (1) Perforated appendix SNOMED Code(s): 47619394 Code(s): K35.32 - ACUTE APPENDICITIS WITH PERF AND LOC PERITONITIS, W/O ABSCS Status: Acute Priority: High Current Visit: Yes - Problem List Review Problem List Initiated/Reviewed/Updated: Yes - My Orders Last 24 Hours: My Active Orders 08/21/19 08:52 NG [Nasogastric Orogastric Tube Removal] [OM.PC] Routine 08/21/19 Lunch Advance Diet Instructions [DIET] - Assessment Assessment:: Perforated Appendix Ileus - Plan Plan:: 08/18/19 0800 This patient had appendix removal after perforation yesterday morning. Dr. Abarca did surgery here in [place]. Dr. Abarca saw this patient this morning and reported patient pain improved. Patient reports some bloating fullness. Patient does report nausea, but no vomiting. Denies fever. Reports he feels better today. He reports able to shower. PO fluids tolerated, but not able to eat foods yet due to nausea. No labs at this time reported. 08/18/19 1700 Patient reports some bloating fullness. Patient does report nausea, vomiting, abd pain at the umbilical. He does report the pain has increased since earlier today when seen by surgeon and me. Patient reports feeling better than yesterday though. Patient did get up and shower today. Patient reports that has been vomiting his fluids. Patient reports he is passing flatus. Dr. Abarca plans to keep until Tuesday, let PCP evaluate at that time for possible discharge. Will continue IV Zosyn. However, reviewed labs which show wbc yesterday 18.4, CRP 7.0. Today labs are wbc 26.0, CRP 27.5. Labs drawn resulted appears to be 0815am. I will repeat labs in afternoon due to wbc elevation, fever, vomiting. I spoke to the patient about his lab elevation, fever, and vomiting. Discussed about talking about patient case with a general surgeon, patient request consult at [facility] in [place]. 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 Dr. Johnson general surgeon at [facility] suggest repeating the labs well. If wbc continues elevation, do a CT. If wbc has decreased, then xray. If illeus then may need NG, if abscess then may need a drain. Awaiting lab results. 08/18/19 1800 Labs wbc is still 26. His CRP has increased. Explained this to patient and . I recommend CT scan with IV contrast. The patient at bedside does not want patient to have ct scan. Discussed with the patient about I feel he needs a CT of abd/pelvis. I explained risk vs benefits with the patient and what we would be looking for. The reports that they would feel more comfortable if I tried to get a hold of the surgeon Dr. Abarca. I did then call his cell and get a hold of him. He reports that at this time continue IV abx and the admit. I then explained this to the patient and . At this time and patient do not want imaging done. I explained risks with not having the scan done. They still do not want at this time. 08/18/191914 I again returned back to the patient room to discuss him getting a ct scan of his abd/pelvis. The patient has again vomited. He continues to have fever, elevated CRP, elevated wbc. I feel strongly that this patient needs a ct scan of his abd/pelvis. I explained in detail risk vs benefits including sepsis, , ischemic bowel, bowel obstructions. Again explained clinical findings and labs with patient. I spent extended time at bedside explaining. The patient then agreed to have the ct scan done. CT scan being performed. 08/18/192044 Radiologist called with CT results: Patient has an illeus. I then called and spoke with Dr. Abarca again about the patient. He has now reviewed the patient ct as well. He request an NG be placed in the patient to intermittent low suction for a couple of days to possible come out Tuesday. He reports to ice [employer] only. Continue IV Zosyn. Continue IV Morphine as needed. 08/18/192144 RN had difficulty with NG insertion left nare. I then inserted NG into left nare without complications. 700ml Gastric green/dark brown secretions removed, then placed to low intermittent suction. RN secured tube. Patient tolerated procedure. Will continue admit and monitor here in [place]. I will see this patient again tomorrow and repeat labs tomorrow. 08/19/19 1030 This patient has NG in place to suction intermittent. RN told me early this morning the patient was ambulating and had x1 vomit. The NG tube was adjusted and patient has not had vomiting since. The patient reports that since NG insertion and especially this morning, he has felt much better. He reports he has felt the best since Tuesday. Patient denies fever subjective. He reports bloating and abd pain has decreased. He denies nausea now. Labs today are wbc 22 , CRP 41.7. His temp is 99.7. Will continue NG, Ice chips. PCP to evaluate tomorrow. Will continue abx. 08-20-2019 Patient resting comfortably, states pain around a 3 this am. Is passing flatus now, has had 3 stools through the night. NG has had 300 ml out since change of shift. Low grade fevers. Incisions are clean and dry to abdomen. Abdomen is soft, bowel sounds noted. Lung sounds clear. Labs are improved today, WBC down to 17.7, CRP has improved from 41.7 to 31.2 today. Did speak with Dr. Abarca regarding patient. Will clamp NG this am. If no nausea or vomiting, will introduce clear liquids at noon with hopes to remove NG tomorrow am. Ambulate. Continue IV antibiotics. 08-21-2019 Patient feeling better today. States pain at a 3, has not taken any pain meds this am. Is passing flatus, had good BM this am. Voiding without difficulty. NG was clamped yesterday, tolerated clear liquids. No vomiting or nausea. Abdomen semi-firm, mildly distended as it has been since admit. Bowel sounds present. Is ambulating well. Labs show improvement, WBC 16.9, hemoglobin 13.2. CRP is high today again at 38.9. Will remove NG today, advance diet as tolerated. Continue IV antibiotics. Try to convert to oral pain meds as able.
[2019-08-21] MEDS: Lactated Ringers 1,000 ML IV SCH ×2 (10:41→21:35)
[2019-08-21] MEDS: Acetaminophen/oxyCODONE 325-5 MG Tab PO PRN ×2 (15:02→21:29)
[2019-08-22] MEDS: Piperacillin/Tazobactam 3.375 GM in Sodium Chloride 0.9% 50 ML IV SCH ×3 (00:57→12:31)
[2019-08-22] MEDS: Acetaminophen/oxyCODONE 325-5 MG Tab PO PRN ×2 (04:30→10:26)
[2019-08-22 09:10] LABS: CHLORIDE,CL 102 mEq/L (98-106); SODIUM,NA 139 mEq/L (136-145)
--- NOTE | 2019-08-22 14:35 | PCM.DCSUM1 ---
Discharge Summary - Hospital Course Free Text/Narrative:: patient is a 34 year old male who presented to ER with complaints of severe lower quadrant abdominal pain. Had been dealing with low grade, dull pain through the week but it became more intense a few hours ago. Has not experienced nausea or vomiting. Did not note a fever prior to arrival. Initially had pain to the right flank but now settled more to the suprapubic area. Has noted distention and "hardness to his abdomen" and pain is severe. Was given pain meds in the ER. UA was negative. Labs done, showed mild elevation of WBC. CT scan done, noted perforation of appendix. Dr. Abarca, general surgeon here in [place], consulted with in regards to surgical intervention. Admitted and started on IV Zosyn with plans for appendectomy later in the am. Diagnosis: Stroke: No Modified Rulo Scale: No Symptoms at All Modified Davina Scale Score: 0 - Discharge Data Discharge Date: 08/22/19 Discharge Disposition: Home, Self-Care 01 Condition: Good - Referral to Home Health Primary Care Physician: PCP None - Discharge Diagnosis/Problem(s) (1) Perforated appendix SNOMED Code(s): 56825249 ICD Code: K35.32 - ACUTE APPENDICITIS WITH PERF AND LOC PERITONITIS, W/O ABSCS Status: Acute Priority: High - Patient Summary/Data Complications: developed ileus/early bowel obstruction Consults: Consultations 08/17/19 06:23 Consult to Physician [CONS] Routine Hospital Course: Patient is now feeling better, improved greatly over the last 24 hours. Patient presented to ER with complaints of lower quadrant abdominal, CT showed ruptured appendix. Had laparoscopic appendectomy on Tuesday. Patient had increasing pain over the weekend, WBC did peak at 26. Surgical consult held per [place]. Opted to proceed with CT scan which did show ileus/question early small bowel obstruction. NG tube was placed with immediate returns and relief of some discomfort. CRP did peak at 41.7, WBC has slowly improved. On Tuesday am, NG tube clamped as is now having stools, passing flatus. No further nausea or vomiting. Over the course of the day, did introduce clear liquids and patient tolerated well. Up ambulating and tolerating well. Continued with IV Zosyn through stay. Tuesday, NG tube removed and slowly advanced diet. Now tolerating soft foods. Has been able to transition to oral percocet which keeps his pain at a 1-2. WBC today down to 15.5, CRP 34.8. Discussed status with Dr. Abarca this am, felt he was safe to return home. Continue levaquin and Flagyl and Percocet for pain. Will follow up in one week. Advised that if were to develop increased pain, nausea or vomiting, distention, would need to present back for follow up sooner as does have risk of developing abscess. - Patient Instructions Diet: Usual Diet as Tolerated Activity: As Tolerated - Discharge Plan *PRESCRIPTION DRUG MONITORING PROGRAM REVIEWED*: No *COPY OF PRESCRIPTION DRUG MONITORING REPORT IN PATIENT JAMAL: No Prescriptions/Med Rec: Acetaminophen/oxyCODONE [Percocet 325-5 MG] 1 tab PO Q4H PRN #30 tablet PRN Reason: Pain (Moderate 4-6) Levofloxacin [Levaquin] 500 mg PO DAILY #7 tablet metroNIDAZOLE [Flagyl] 500 mg PO Q8H #21 tab Home Medications: Home Meds Albuterol [Ventolin HFA] 1 inh ASDIRECTED PRN 08/17/19 [History] Fluticasone Propionate [Flovent HFA 220 MCG] 1 inh DAILY 08/17/19 [History] Montelukast Sodium 1 tab PO DAILY 08/17/19 [History] SUMAtriptan [Imitrex] 1 tab PO ASDIRECTED PRN 08/17/19 [History] Acetaminophen/oxyCODONE [Percocet 325-5 MG] 1 tab PO Q4H PRN #30 tablet [Rx] Levofloxacin [Levaquin] 500 mg PO DAILY #7 tablet 08/22/19 [Rx] metroNIDAZOLE [Flagyl] 500 mg PO Q8H #21 tab 08/22/19 [Rx] Forms: ED Department Discharge Referrals: Stella Hutchinson PA [Emergency Provider] - (Follow up in 7 days for recheck ) - Discharge Summary/Plan Comment DC Time >30 min.: No - General Info Date of Service: 08/23/19 Admission Dx/Problem (Free Text: Perforated Appendix Functional Status: Reports: Pain Controlled, Tolerating Diet, Ambulating, Urinating - Review of Systems General: Reports: Weakness, Fatigue, Malaise. Denies: Fever HEENT: Reports: No Symptoms Pulmonary: Denies: Shortness of Breath, Cough Cardiovascular: Denies: Chest Pain, Edema, Lightheadedness Gastrointestinal: Reports: Abdominal Pain. Denies: Constipation, Diarrhea, Nausea, Vomiting Genitourinary: Reports: No Symptoms Musculoskeletal: Reports: No Symptoms Skin: Reports: Other (incisions healing well) Neurological: Reports: No Symptoms - Patient Data Vitals - Most Recent: Last Vital Signs Temp 98.4 F 08/22/19 12:00 Pulse 96 08/22/19 12:00 Resp 18 08/22/19 12:00 BP 152/92 H 08/22/19 12:00 Pulse Ox 100 08/22/19 12:00 Weight - Most Recent: 200 lb I&O - Last 24 hours: Intake & Output 08/21/19 08/22/19 08/22/19 22:59 06:59 14:59 Intake Total 1000 Balance 1000 Lab Results - Last 24 hrs: Laboratory Results - last 24 hr 08/22/19 08/22/19 Range/Units 08:58 08:58 WBC 15.5 H (5.0-10.0) 10^3/uL RBC 4.48 L (4.50-6.00) 10^6/uL Hgb 12.7 L (14.0-18.0) g/dL Hct 37.1 L (40.0-54.0) % MCV 82.8 (82.0-94.0) fL MCH 28.3 (27.0-32.0) pg MCHC 34.2 (33.0-38.0) g/dL RDW Coeff of Angela 13.5 (11.0-15.0) % Plt Count 309 (150-400) 10^3/uL Neut % (Auto) 77.8 (35-85) % Lymph % (Auto) 6.1 L (10-55) % [place] % (Auto) 10.6 (0-16) % Eos % (Auto) 5.4 H (0-5) % Baso % (Auto) 0.1 (0-3) % Neut # (Auto) 12.07 H (1.80-7.00) 10^3/uL Lymph # (Auto) 0.94 L (1.00-4.80) 10^3/uL [place] # (Auto) 1.65 H (0.00-0.80) 10^3/uL Eos # (Auto) 0.84 H (0.00-0.45) 10^3/uL Baso # (Auto) 0.02 10^3/uL Sodium 139 (136-145) mEq/L Potassium 3.7 (3.5-5.0) mEq/L Chloride 102 (98-106) mEq/L Carbon Dioxide 27 (21-32) mmol/L BUN 12 (7-18) mg/dL Creatinine 0.8 (0.7-1.3) mg/dL Est Cr Clr Drug Dosing 147.04 mL/min Estimated GFR (MDRD) > 60 (>=60) mL/min Glucose 117 H (75-99) mg/dL Calcium 8.6 (8.4-10.1) mg/dL C-Reactive Protein 34.8 H (0.2-0.8) mg/dL MAYRA Results - Last 24 hrs: Microbiology 08/18/19 18:00 Aerobic Blood Culture - Preliminary Blood - Venous NO GROWTH AFTER 3 DAYS Anaerobic Blood Culture - Preliminary NO GROWTH AFTER 3 DAYS 08/18/19 18:00 Aerobic Blood Culture - Preliminary Blood - Venous - Lab Draw NO GROWTH AFTER 3 DAYS Anaerobic Blood Culture - Preliminary NO GROWTH AFTER 3 DAYS Med Orders - Current: Current Medications Fentanyl (Sublimaze) 25 mcg IVPUSH Q1H PRN PRN Reason: Pain Last Admin: 08/20/19 03:35 Dose: 25 mcg Piperacillin Sod/Tazobactam (Sod 3.375 gm/ Sodium Chloride) 50 mls @ 100 mls/ hr IV Q6H [facility] Last Admin: 08/22/19 12:31 Dose: 100 mls/hr Morphine Sulfate (Morphine) 2 mg IV Q1H PRN PRN Reason: Pain (severe 7-10) Last Admin: 08/21/19 03:42 Dose: 2 mg Ondansetron HCl (Zofran) 4 mg IVPUSH Q6H PRN PRN Reason: Nausea/Vomiting Last Admin: 08/18/19 12:32 Dose: 4 mg Oxycodone/Acetaminophen (Percocet 325-5 Mg) 1 tab PO Q4H PRN PRN Reason: Pain (moderate 4-6) Last Admin: 08/22/19 10:26 Dose: 1 tab Sodium Chloride (Saline Flush) 10 ml FLUSH ASDIRECTED PRN PRN Reason: Keep Vein Open Discontinued Medications Fentanyl (Sublimaze) 50 mcg IVPUSH ONETIME ONE Stop: 08/17/19 05:27 Last Admin: 08/17/19 05:31 Dose: 50 mcg Fentanyl (Sublimaze) 300 mcg .XX .STK-MED ONE Stop: 08/17/19 08:40 Lactated Ringer's (Ringers, Lactated) 1,000 mls @ 250 mls/hr IV ASDIRECTED [facility] Last Infusion: 08/17/19 17:29 Dose: 100 mls/hr Piperacillin Sod/Tazobactam (Sod 3.375 gm/ Sodium Chloride) 50 mls @ 100 mls/ hr IV Q6H [facility] Last Admin: 08/17/19 06:36 Dose: 100 mls/hr Piperacillin Sod/Tazobactam (Sod 3.375 gm/ Sodium Chloride) 50 mls @ 100 mls/ hr IV Q6H [facility] Last Admin: 08/17/19 13:28 Dose: Not Given Lactated Ringer's (Ringers, Lactated) 1,000 mls @ 100 mls/hr IV ASDIRECTED [facility] Last Admin: 08/21/19 21:35 Dose: 100 mls/hr Sodium Chloride (Normal Saline) 1,000 mls @ 75 mls/hr IV ASDIRECTED [facility] Iopamidol (Isovue-370 (76%)) 100 ml IVPUSH ONETIME ONE Stop: 08/17/19 05:35 Last Admin: 08/17/19 05:51 Dose: 100 ml Iopamidol (Isovue-370 (76%)) 100 ml IVPUSH ONETIME ONE Stop: 08/18/19 19:56 Last Admin: 08/18/19 20:03 Dose: 100 ml Ketorolac Tromethamine (Toradol) 30 mg IVPUSH ONETIME ONE Stop: 08/17/19 05:04 Last Admin: 08/17/19 05:11 Dose: 30 mg Propofol (Diprivan 20 Ml) 200 mg IV .STK-MED ONE Stop: 08/17/19 08:40 - Exam General: Reports: Alert, Oriented HEENT: Reports: Mucous Membr. Moist/[place] Neck: Reports: Supple Lungs: Reports: Clear to Auscultation, Normal Respiratory Effort Cardiovascular: Reports: Regular Rate, Regular Rhythm GI/Abdominal Exam: Normal Bowel Sounds, Soft, Tender Extremities: Normal Inspection, No Pedal Edema Skin: Reports: Warm, Dry Wound/Incisions: Reports: Healing Well, No Drainage Neurological: Reports: No New Focal Deficit
== END 2019-08-22 15:00 | disposition home or self-care (01) | DRG 233 ==
LOC: CC.ED 04:51 → CC.MS 08:38 → CC.ED 09:33 → UNDOADMOB 09:37 → CC.MS 09:37 → UNDOADMOB 11:26 → OBSVTOIN 12:58
PROVIDERS: ADMIT Physician Assistant Medical; ATTEND Family Medicine
PROC: 0DTJ4ZZ Resection of Appendix, Percutaneous Endoscopic Approach (ICD-10-PCS; principal; 2019-08-17)
DX: K35.32 Acute appendicitis with perforation, localized peritonitis, and gangrene, without abscess (principal); K56.7 Ileus, unspecified; Z88.1 Allergy status to other antibiotic agents; Z79.899 Other long term (current) drug therapy
CPT/HCPCS: 36415; 74177; 80048; 80053; 81001; 83605; 85025; 86140; 87040; 96361; 96365; 96375; 99285-25; A9270-GY; J1885; J2270; J2405; J2543; J2704; J3010; J7050; J7120; Q9967

== ENCOUNTER 2024-08-06 15:07 | Emergency (ER) | payer OTHER, BC ==
[2024-08-06] MEDS: Diphtheria,Pertussis(Acell),Tetanus Vaccine 0.5 ML Syringe IM ONE (15:14)
[2024-08-06] MEDS: Lidocaine 1% 5 ML VIAL INJECT ONE (15:17)
[2024-08-06] MEDS: Bacitracin/Neomycin/Polymyxin B Oint 0.9 GM U/D Packet TOP ONE (16:09)
== END 2024-08-06 16:25 | disposition home or self-care (01) ==
LOC: CC.ED 15:07
DX: S61.211A Laceration without foreign body of left index finger without damage to nail, initial encounter (principal); Z23 Encounter for immunization; J45.909 Unspecified asthma, uncomplicated; Z79.899 Other long term (current) drug therapy; Z79.4 Long term (current) use of insulin; Z88.8 Allergy status to other drugs, medicaments and biological substances; W23.1XXA Caught, crushed, jammed, or pinched between stationary objects, initial encounter
CPT/HCPCS: 12001; 90471; 90715; 99282-25; 99283; A9270-GY; J3490